=== PATIENT | male | born 1965 | race African-American/Black ===

== ENCOUNTER 2017-07-31 08:57 | Emergency (ER) | payer MEDICAID ==
[~2017-07-31] VITALS: Ht 172.7 cm; Wt 170.0 kg
[2017-07-31 09:48] LABS: BASOPHILS % 1.4 % (0.0-2.0); EOSINOPHILS % 1.9 % (0.0-5.0); HEMATOCRIT. 42.6 % (42.0-52.0); HEMOGLOBIN. 14.5 g/dL (14.0-18.0); LYMPHOCYTES % 29.5 % (20.0-50.0); MEAN CORPUSCULAR VOLUME 91.3 fL (80.0-94.0); MEAN PLATELET VOLUME 8.3 fl (7.4-10.4); MONOCYTES % 9.4 % (2.0-8.0); NEUTROPHILS % 57.8 % (40.0-76.0); PLATELET 221 x1000/uL (130-400); RED BLOOD CELL COUNT 4.67 mill/uL (4.7-6.1); RED CELL DISTRIBUTION WIDTH 14.5 % (11.6-14.6)
[2017-07-31 09:56] LABS: PROTHROMBIN TIME 10.2 sec (9.4-11.6)
[2017-07-31 10:05] LABS: CHLORIDE 104 mEq/L (98-107)
[2017-07-31 10:10] LABS: TROPONIN I < 0.02 ng/mL (0.00-0.04)
[2017-07-31 11:53] VITALS: BP 133/89
== END 2017-07-31 11:59 | disposition home or self-care (01) ==
LOC: ER 09:05
DX: B34.9 Viral infection, unspecified (principal); F17.200 Nicotine dependence, unspecified, uncomplicated; I10 Essential (primary) hypertension; M10.9 Gout, unspecified; Z98.890 Other specified postprocedural states
CPT/HCPCS: 36415; 71045; 80053; 83880; 84484; 85025; 85610; 93005; 99285; Z7610

== ENCOUNTER 2018-05-08 21:45 | Emergency (ER) | payer MEDICAID ==
[~2018-05-08] VITALS: Ht 172.7 cm; Wt 155.0 kg
[2018-05-08] MEDS ORDERED: IPRATROPIUM BROMIDE (0.02%) 0.5MG/2.5ML NEB HHN STA (22:45)
[2018-05-08] MEDS ORDERED: ALBUTEROL (0.083%) 2.5MG/3ML NEB HHN STA (22:45)
[2018-05-08 23:41] LABS: BASOPHILS % 0.7 % (0.0-2.0); EOSINOPHILS % 2.3 % (0.0-5.0); HEMATOCRIT. 40.5 % (42.0-52.0); HEMOGLOBIN. 13.6 g/dL (14.0-18.0); LYMPHOCYTES % 25.6 % (20.0-50.0); MEAN CORPUSCULAR HEMOGLOBIN 31.3 pg (28.0-32.0); MEAN CORPUSCULAR VOLUME 93.1 fL (80.0-94.0); MEAN PLATELET VOLUME 8.3 fl (7.4-10.4); MONOCYTES % 9.5 % (2.0-8.0); NEUTROPHILS % 61.9 % (40.0-76.0); PLATELET 202 x1000/uL (130-400); RED BLOOD CELL COUNT 4.35 mill/uL (4.7-6.1); RED CELL DISTRIBUTION WIDTH 14.6 % (11.6-14.6)
[2018-05-08 23:45] LABS: CHLORIDE 103 mEq/L (98-107)
[2018-05-09] MEDS ORDERED: ACETAMINOPHEN 325MG TABLET PO PRN (06:00)
[2018-05-09] MEDS ORDERED: ONDANSETRON HCL 4MG/2ML INJ IV PRN (06:00)
[2018-05-09] MEDS ORDERED: IPRATROPIUM/ALBUTEROL 0.5-3(2.5)MG/3ML NEB INH PRN (06:00)
[2018-05-09] MEDS ORDERED: CEFTRIAXONE 1 G PREMIX 50 ML IV SCH (06:00)
[2018-05-09] MEDS ORDERED: DOCUSATE SODIUM 100MG CAPSULE PO PRN (06:00)
[2018-05-09] MEDS ORDERED: GUAIFENESIN 200MG/10ML SUGAR FREE UDC PO PRN (06:00)
[2018-05-09] MEDS ORDERED: ENALAPRIL 5MG TABLET PO SCH (06:00)
[2018-05-09] MEDS ORDERED: AZITHROMYCIN 500 MG in DEXT 5% WATER 250 ML IV SCH (06:00)
[2018-05-09] MEDS ORDERED: CLONIDINE 0.1MG TABLET PO PRN (06:00)
[2018-05-09] MEDS ORDERED: MAGNESIUM/ALUMINUM HYDROXIDE/SIMETHICONE 30ML UDC PO PRN (06:00)
[2018-05-09] MEDS ORDERED: ASPIRIN 81MG EC TABLET PO SCH (09:00)
[2018-05-09] MEDS ORDERED: AMLODIPINE 10MG TABLET PO SCH (09:00)
[2018-05-09 11:55] VITALS: BP 137/78
== END 2018-05-09 11:56 | disposition left against medical advice (07) ==
LOC: ER 21:45 → EDBEDREQTM 05-09 02:43 → EDBEDREQ 05-09 02:43 → SUPCPDRO 05-09 05:51 → ER 05-09 11:56 → CANRESERV 05-09 12:52 → ENRESERV 05-09 12:52 → CANBEDREQ 05-10 09:07
DX: I50.9 Heart failure, unspecified (principal); I11.0 Hypertensive heart disease with heart failure; F17.200 Nicotine dependence, unspecified, uncomplicated; Z98.890 Other specified postprocedural states
CPT/HCPCS: 36415; 71045; 80053; 83880; 84484; 85025; 93005; 93970; 94640; 96365; 96366; 99284; 99406; J0456; J0696; J7060; J7611